=== PATIENT | female | born 1970 | race Caucasian/White ===

== ENCOUNTER 2017-09-22 20:09 | Emergency (ER) | payer BC, OTHER ==
[2017-09-22 20:17] VITALS: BMI 41.6
[2017-09-22] MEDS ORDERED: TORADOL 30 MG VIAL IVP STA (20:54)
[2017-09-22] MEDS ORDERED: ZOFRAN INJ 4 MG VIAL IVP ONE (20:54)
[2017-09-22] MEDS ORDERED: CATAPRES TAB 0.2 MG PO ONE (20:55)
[2017-09-22] MEDS ORDERED: TORADOL 30 MG VIAL ONE (20:58)
[2017-09-22] MEDS ORDERED: NS 1000 ML 1,000 ML ONE (20:58)
[2017-09-22] MEDS ORDERED: CATAPRES TAB 0.2 MG ONE (20:58)
[2017-09-22] MEDS ORDERED: ZOFRAN INJ 4 MG VIAL ONE (20:58)
[2017-09-22] MEDS ORDERED: NS 1000 ML 1,000 ML IV SCH (21:00)
--- NOTE | 2017-09-22 21:00 | DR.GENAD ---
HPI - PCP Primary Care Physician: JUAN JOSE - Complaint/Symptoms Chief Complaint Doctors Comments: Patient is complaining of RUQ pain like someone is inside squeezing her insides with the pain worst today with nausea and vomiting. States she has been having problems with right sided pain for about 2-3 weeks with the pain off and on but it got wors today. states the pain is 10 of 10 presently with fever but denies chill or diarrhea. States she had a hysterectomy about 15 years ago and denies a history of kidney stones. states she is a patient of Dr. Osiel Alicia in [place] and she is currently taking Lisinopril 40mg; Effexor 37.5mg; and Catapres 0.1mg prn. She denies tobacco or alcohol use. Patient states she is a diabetic and takes 60 units of Lantus at night but she has not had her night dose of insulin today. Chief Complaint:: PT C/O RUQ PAIN THAT IS STABBING IN PAIN THAT IS COMMING AND GOING TO STATES SHE HAS BEEN VOMITTING ALL DAY AND HAS NOT BEEN ABLE TO KEEP ANYTHING DOWN. - Nurses notes reviewed Nurses Notes Review: Yes - Source History Provided: Patient - Mode of Arrival Mode of Arrival: Ambulatory - Timing Onset of Chief Complaint: 09/22/17 Came on: Gradually - Duration Duration: Intermittent How lon Duration: Weeks - Location Location: RUQ pain - Severity Severity: Moderate - Modifying Factors Worsens:: nothing Improves:: nothing PMH - PMH Past Medical History: Yes Past Medical History: Anxiety, Hypertension Past Surgical History: Yes Surgical History: Hysterectomy Past Surgical History Comment: BREAST REDUCTION - Family History History of Family Medical Conditions: No - Social History Does any household member use tobacco: No Alcohol Use: None Do you use any recreational Drugs:: No Lives With: Family Lives Where: Home - infectious screening In the last 2 months have you had wt loss of >10#?: NO Have you had fever, night sweats or hemotysis?: No Have you traveled outside the country in the last 6 months?: No Isolation: Standard ROS - Review of Systems Constitutional: No Symptoms Reported, Fever. negative: See HPI, Chills, Diaphoresis, Malaise, Weakness, Irritable, Fatigue, Loss of Appetite, Other Eyes: No Symptoms Reported ENTM: No Symptoms Reported Respiratoy: No Symptoms Reported. negative: See HPI, Productive Cough, Non- Productive Cough, Moist Cough, Dry Cough, Hacking Cough, Barking Cough, Brassy Cough, Orthopnea, Short of Breath, Stridor, Wheezing, Hemoptysis, Other Cardiovascular: No Symptoms Reported. negative: See HPI, Chest Pain, Edema, Palpitations, Syncope, Cyanosis, Skin Mottling, Other Gastrointestinal/Abdominal: No Symptoms Reported, Abdominal Pain, Nausea, Vomiting Genitourinary: No Symptoms Reported. negative: See HPI, Discharge, Dysuria, Frequency, Hematuria, Pain, Bleeding, Other Neurological: No Symptoms Reported, Anxiety, Emotional Problems Musculoskeletal: No Symptoms Reported Integumentary: No Symptoms Reported. negative: See HPI, Change in Color, Change in Hair/Nails, Dryness, Lesions, Lumps, Rash, Itching, Wound, Bruises, Juandice, Other Hematologic/Lymphatic: No Symptoms Reported. negative: See HPI, Anemia, Blood Clots, Easy Bleeding, Easy Bruising, Swollen Glands, Lymphadenopathy, Other Endocrine: No Symptoms Reported Psychiatric: No Symptoms Reported. negative: See HPI, Anxiety, Depression, Hallucinations, Excessive crying, Suicidal, Other PE - Vital Signs Vitals: Temperature 99.0 F Pulse Rate 109 Respiratory Rate 20 Blood Pressure [Right Radial 213/114 Artery] Blood Pressure 230/112 O2 Sat by Pulse Oximetry 97 - General Limitations: No Limitations General Appearance: Alert, In Distress (mild), Obese - Head Head Exam: Normal Inspection, Atraumatic, Normocephalic - Eyes Eye exam: Normal Appearance, PERRL, EOMI. negative: Scleral Icterus, Conjunctival Injection, Nystagmus, Miosis, Mydrasis, Periorbital Swelling, Periorbital Tenderness, Other - ENT ENT Exam: Normal Exam, Normal Oropharynx, Normal External Ear Exam, Mucous Membranes Moist, TM's Normal Bilaterally External Ear Exam: Normal External Inspection TM/Canal Exam: Bilateral Normal Nose Exam: Normal Nose Exam Mouth Exam: Normal Inspection Throat Exam: Normal Inspection, Tonsillar Erythema. negative: Tonsillomegaly, Tonsillar Exudate, R Peritonsillar Mass, L Peritonsillar Mass, Muffled Voice, Other - Neck Neck Exam: Normal Inspection, Full ROM, Trachea Midline. negative: Tenderness, Meningismus, Lymphadenopathy, Thyromegaly, Other - Chest Chest Inspection: Normal Inspection, Symmetric Chest Wall Rise. negative: Tenderness, Rash, Abscess, Other - Respiratory Respiratory Exam: Normal Lung Sounds Bilat. negative: Accessory Muscle Use, Chest Wall Tenderness, Prolonged Expiratory Phase, Respiratory Distress, Stridor , Other Respiratory Exam: Bilateral Clear to Auscultation - Cardiovascular Cardiovascular Exam: Regular Rate, Normal Rhythm, Normal Heart Sounds - Abdominal Exam Abdominal Exam: Normal Inspection, Normal Bowel Sounds, Soft, Tenderness (RUQ tenderness; right CVA tenderness with guarding), Guarding, Dimnished Bowel Sounds Abdominal Tenderness: RUQ, Moderate - Extremities Extremities Exam: Normal Inspection, Full ROM, Normal Capillary Refill, Edema, Joint Swelling - Back Back Exam: Normal Inspection, Full ROM, (R) CVA Tenderness - Neurologic Neurological Exam: Alert, Oriented X3, CN II-XII Intact, Normal Gait, Reflexes Normal - Psychiatric Psychiatric Exam: Normal Affect, Normal Mood - Skin Skin Exam: Warm, Dry, Intact, Normal Color. negative: Rash, Cyanosis, Diaphoresis, Erythema, Pallor, Mottled, Other ROR - Labs Reviewed Laboratory Results Reviewed?: Yes (All labs and x-ray results reviewed and discussed with patient) Result Diagrams: 09/22/17 21:04 09/22/17 21:04 Laboratory: WBC 11.1 X10^3/uL (3.6-10.0) H 09/22/17 21:04 RBC 4.93 X10^6/uL (3.5-5.4) 09/22/17 21:04 Hgb 14.0 g/dL (12.0-16.0) 09/22/17 21:04 Hct 42.0 % (36.0-47.0) 09/22/17 21:04 MCV 85.0 fL (80.0-100.0) 09/22/17 21:04 MCH 28.4 pg (27.0-34.0) 09/22/17 21:04 MCHC 33.4 g/dL (33.0-35.0) 09/22/17 21:04 RDW 13.0 % (11.6-16.5) 09/22/17 21:04 Plt Count 224 X10^3/uL (150.0-450.0) 09/22/17 21:04 MPV 11.1 fL (7.4-11.0) H 09/22/17 21:04 Neut % 52.1 % (42.0-75.0) 09/22/17 21:04 Lymph % 37.3 % (21.0-51.0) 09/22/17 21:04 [place] % 4.9 % (0.0-13.0) 09/22/17 21:04 Eos % 3.7 % (0.9-2.9) H 09/22/17 21:04 Baso % 2.0 % (0.2-1.0) H 09/22/17 21:04 Neut # 5.8 x10^3/uL (2.2-4.8) H 09/22/17 21:04 Lymph # 4.1 X10^3/uL (1.3-2.9) H 09/22/17 21:04 [place] # 0.5 x10^3/uL (0.3-0.8) 09/22/17 21:04 Eos # 0.4 x10^3/uL (0.0-0.2) H 09/22/17 21:04 Baso # 0.2 X10^3/uL (0.0-0.1) H 09/22/17 21:04 Absolute Nucleated RBC 0.1 /100WBC 09/22/17 21:04 Sodium 138 mmol/L (136-145) 09/22/17 21:04 Corrected Sodium 145 mmol/L (136-145) 09/22/17 21:04 Potassium 4.1 mmol/L (3.5-5.1) 09/22/17 21:04 Chloride 102 mmol/L (98-107) 09/22/17 21:04 Carbon Dioxide 27.1 mmol/L (21-32) 09/22/17 21:04 BUN 23 mg/dL (7-18) H 09/22/17 21:04 Creatinine 1.41 mg/dL (0.55-1.02) H 09/22/17 21:04 Est GFR (MDRD) Af Amer 51 (>60) L 09/22/17 21:04 Est GFR (MDRD) Non-Af 42 (>60) L 09/22/17 21:04 Glucose 407 mg/dL (65-99) H 09/22/17 21:04 Calcium 8.8 mg/dL (8.5-10.1) 09/22/17 21:04 Corrected Calcium 9.4 mg/dL (8.5-10.1) 09/22/17 21:04 Total Bilirubin 0.40 mg/dL (0.2-1.0) 09/22/17 21:04 AST 19 Units/L (15-37) 09/22/17 21:04 ALT 49 Units/L (12-78) 09/22/17 21:04 Alkaline Phosphatase 144 Units/L (46-116) H 09/22/17 21:04 Total Protein 7.6 g/dL (6.4-8.2) 09/22/17 21:04 Albumin 3.3 g/dL (3.4-5.0) L 09/22/17 21:04 Globulin 4.3 g/dL (2.5-4.5) 09/22/17 21:04 Albumin/Globulin Ratio 0.8 Ratio (1.1-2.1) L 09/22/17 21:04 Amylase 31 Units/L (25-115) 09/22/17 21:04 Lipase 335 Units/L (73-393) 09/22/17 21:04 Specimen Type Clean catch urine 09/22/17 20:52 Urine Color Yellow (YELLOW) 09/22/17 20:52 Urine Appearance Clear (CLEAR) 09/22/17 20:52 Urine pH 6.0 (5.0 - 8.0) 09/22/17 20:52 Ur Specific [place] 1.015 (1.000-1.030) 09/22/17 20:52 Urine Protein 2+ (NEGATIVE) 09/22/17 20:52 Urine Glucose (UA) 4+ (NEGATIVE) 09/22/17 20:52 Urine Ketones Negative (NEGATIVE) 09/22/17 20:52 Urine Occult Blood 1+ (NEGATIVE) 09/22/17 20:52 Urine Nitrite Negative (NEGATIVE) 09/22/17 20:52 Urine Bilirubin Negative (NEGATIVE) 09/22/17 20:52 Urine Urobilinogen Normal (NORMAL) 09/22/17 20:52 Ur Leukocyte Esterase 1+ (NEGATIVE) 09/22/17 20:52 Urine RBC 0-3 /HPF (NONE SEEN) 09/22/17 20:52 Urine WBC 0-3 /HPF (NONE SEEN) 09/22/17 20:52 Ur Squamous Epith Cells Moderate /HPF (NEGATIVE) 09/22/17 20:52 Urine Bacteria Trace /HPF (NEGATIVE) 09/22/17 20:52 Ur Culture Indicated? No/not indicated 09/22/17 20:52 - XRAY XRAY Interpreted by: Radiologist (CT abdomen and pelvis: Cholelithiasis without CT evidence of acute cholecystitis. Mild hepatomegaly and heapatic steatosis.) - Diagnosis Discharge Problem: Essential hypertension Cholelithiasis Qualifiers: Cholecystitis presence: without cholecystitis Abdominal pain Qualifiers: Abdominal location: right upper quadrant Qualified Code(s): R10.11 - Right upper quadrant pain Diabetes mellitus Qualifiers: Diabetes mellitus type: type 1 Diabetes mellitus complication status: with hyperglycemia Qualified Code(s): E10.65 - Type 1 diabetes mellitus with hyperglycemia Chronic kidney disease Qualifiers: Chronic kidney disease stage: stage 3 (moderate) Qualified Code(s): N18.3 - Chronic kidney disease, stage 3 (moderate) - Discharge Plan Disposition: HOME, SELF-CARE Condition: Stable Prescriptions: Ondansetron [Zofran Odt] 4 mg PO Q8H PRN #14 tab.rapdis PRN Reason: - Follow ups/Referrals Follow ups/Referrals: SHREYAS ALICIA [Primary Care Provider] - 3 days - Instructions Instructions: Cholelithiasis, Type 2 Diabetes Mellitus, Adult, [id number], Chronic Kidney Disease, [id number], Hypertension, [id number] Additional Instructions: Patient informed of CT and lab results and she said she wanted to go home and try home therapy and see Dr. Alicia on Monday in the office for evaluation and referral to surgeon. states if she gets worst she will return to the emergency room. States she do not want to be admitted into the hospital presently.
[2017-09-22 21:15] LABS: BILIRUBIN,URINE NEGATIVE (NEGATIVE); BLOOD/HEMOGLOBIN,URINE 1+ (NEGATIVE); GLUCOSE, URINE 4+ (NEGATIVE); KETONES,URINE NEGATIVE (NEGATIVE); LEUKOCYTE ESTERASE ,URINE 1+ (NEGATIVE); NITRITES,URINE NEGATIVE (NEGATIVE); PROTEIN,URINE 2+ (NEGATIVE); UROBILINOGEN,URINE NORMAL (NORMAL)
[2017-09-22 21:17] LABS: BASOPHILS # (AUTO) 0.2 X10^3/uL (0.0-0.1); EOSINOPHILS # (AUTO) 0.4 x10^3/uL (0.0-0.2); EOSINOPHILS % (AUTO) 3.7 % (0.9-2.9); LYMPHOCYTES # (AUTO) 4.1 X10^3/uL (1.3-2.9); LYMPHOCYTES % (AUTO) 37.3 % (21.0-51.0); MEAN CORPUSCULAR HEMOGLOBIN 28.4 pg (27.0-34.0); MEAN CORPUSCULAR HGB CONC 33.4 g/dL (33.0-35.0); MEAN PLATELET VOLUME 11.1 fL (7.4-11.0); MONOCYTES # (AUTO) 0.5 x10^3/uL (0.3-0.8); MONOCYTES % (AUTO) 4.9 % (0.0-13.0); NEUTROPHILS # (AUTO) 5.8 x10^3/uL (2.2-4.8); NEUTROPHILS % (AUTO) 52.1 % (42.0-75.0); PLATELET COUNT 224 X10^3/uL (150.0-450.0); RED BLOOD COUNT 4.93 X10^6/uL (3.5-5.4); WHITE BLOOD COUNT 11.1 X10^3/uL (3.6-10.0)
[2017-09-22 21:27] LABS: APPEARANCE,URINE CLEAR (CLEAR); BACTERIA,URINE TRACE /HPF (NEGATIVE); COLOR,URINE YELLOW (YELLOW); RBC,URINE 0-3 /HPF (NONE SEEN); SQUAMOUS EPITHELIAL CELL,UR MODERATE /HPF (NEGATIVE)
[2017-09-22 21:30] LABS: ALBUMIN 3.3 g/dL (3.4-5.0); CALCIUM 8.8 mg/dL (8.5-10.1); CARBON DIOXIDE 27.1 mmol/L (21-32); COR CA(FOR HYPOALB) 9.4 mg/dL (8.5-10.1); CREATININE 1.41 mg/dL (0.55-1.02); TOTAL PROTEIN 7.6 g/dL (6.4-8.2)
--- NOTE | 2017-09-22 21:31 | CT ---
CT abdomen without contrast Indication: Fever, right upper quadrant pain Technique: Helical CT images of the abdomen and pelvis were obtained without IV contrast. Reformatted images in the coronal and sagittal planes were also generated for review. Comparison: None Findings: Lung bases are clear. No aggressive osseous lesions are identified. Within the limits of a noncontrast exam, the liver is mildly enlarged and diffusely steatotic but nor mal in configuration without focal lesion. There is cholelithiasis without CT evidence of acute maida cystitis. The spleen, pancreas and adrenals are unremarkable. Both kidneys and visualized ureters are normal without radiopaque stones or hydroureteronephrosis. There is no bowel inflammation or obstruc tion. The appendix is normal. The IVC, abdominal aorta and urinary bladder are normal. The patient is post hysterectomy. No free air, free fluid or lymphadenopathy is identified. Impression: No acute abnormality to explain patient's symptoms. Cholelithiasis without CT evidence of acute cholecystitis. Mild hepatomegaly and hepatic steatosis Reported By:
[2017-09-22 22:10] VITALS: BP 213/114
[2017-09-22] MEDS ORDERED: HumuLIN R IV STA (22:19)
[2017-09-22] MEDS ORDERED: HumuLIN R ONE (22:47)
[2017-09-23] MEDS ORDERED: SNACK - Diabetic Appropriate PO SCH (20:00)
== END 2017-09-22 23:21 | disposition home or self-care (01) ==
LOC: ER 20:21
DX: K80.20 Calculus of gallbladder without cholecystitis without obstruction (principal); R10.11 Right upper quadrant pain; E10.65 Type 1 diabetes mellitus with hyperglycemia; N18.3 Chronic kidney disease, stage 3 (moderate); I10 Essential (primary) hypertension
CPT/HCPCS: 36415; 74176; 80053; 81001; 82150; 83690; 85025; 96365; 96367; 96374; 96375; 99282; 99283; A4216; J1815; J1885; J2405

== ENCOUNTER 2017-10-11 07:28 | Day surgery (SDC) | payer BC, OTHER ==
[~2017-10-11 07:28] MED LIST: MARCAINE 0.25% INJ ONE; XYLOCAINE 1% and EPINEPHRINE 1:100,000 ONE
[2017-10-11] MEDS ORDERED: NS 1000 ML 1,000 ML ONE (08:23)
[2017-10-11 08:25] LABS: BASOPHILS # (AUTO) 0.1 X10^3/uL (0.0-0.1); BASOPHILS % (AUTO) 1.1 % (0.2-1.0); EOSINOPHILS # (AUTO) 0.5 x10^3/uL (0.0-0.2); EOSINOPHILS % (AUTO) 4.9 % (0.9-2.9); HEMATOCRIT 42.2 % (36.0-47.0); HEMOGLOBIN 14.3 g/dL (12.0-16.0); LYMPHOCYTES % (AUTO) 31.7 % (21.0-51.0); MEAN CORPUSCULAR HEMOGLOBIN 28.8 pg (27.0-34.0); MEAN CORPUSCULAR VOLUME 84.7 fL (80.0-100.0); MEAN PLATELET VOLUME 10.8 fL (7.4-11.0); MONOCYTES # (AUTO) 0.5 x10^3/uL (0.3-0.8); MONOCYTES % (AUTO) 5.2 % (0.0-13.0); NEUTROPHILS # (AUTO) 5.3 x10^3/uL (2.2-4.8); NEUTROPHILS % (AUTO) 57.1 % (42.0-75.0); PLATELET COUNT 207 X10^3/uL (150.0-450.0); RED BLOOD COUNT 4.98 X10^6/uL (3.5-5.4); RED CELL DISTRIBUTION WIDTH 12.6 % (11.6-16.5); WHITE BLOOD COUNT 9.3 X10^3/uL (3.6-10.0)
[2017-10-11 08:37] LABS: ALANINE AMINOTRANSFERASE 55 Units/L (12-78); ALBUMIN 3.2 g/dL (3.4-5.0); ALKALINE PHOSPHATASE 142 Units/L (46-116); ASPARTATE AMINO TRANSFERASE 26 Units/L (15-37); BLOOD UREA NITROGEN 18 mg/dL (7-18); CALCIUM 8.5 mg/dL (8.5-10.1); CARBON DIOXIDE 22.9 mmol/L (21-32); CHLORIDE 101 mmol/L (98-107); COR CA(FOR HYPOALB) 9.1 mg/dL (8.5-10.1); COR NA(FOR HYPERGLY) 143 mmol/L (136-145); CREATININE 1.15 mg/dL (0.55-1.02); SODIUM 137 mmol/L (136-145); TOTAL PROTEIN 7.6 g/dL (6.4-8.2); eGFR BLACK RACES > 60 (>60); eGFR NON BLACK RACES 54 (>60)
[2017-10-11 09:17] VITALS: BP 200/113
== END 2017-10-11 09:00 | disposition home or self-care (01) ==
LOC: SURG1 07:28
PROVIDERS: ATTEND Student in an Organized Health Care Education/Training Program
DX: I10 Essential (primary) hypertension (principal); R73.9 Hyperglycemia, unspecified; R94.31 Abnormal electrocardiogram [ECG] [EKG]; Z53.8 Procedure and treatment not carried out for other reasons
CPT/HCPCS: 36415; 80053; 85025; 93005; 93010; S0020; J2001

== ENCOUNTER → 2017-11-02 | Outpatient (CLI) | payer BC, OTHER ==
[2017-10-11 09:17] VITALS: BP 200/113
--- NOTE | 2017-11-02 09:58 | US ---
History: Uncontrolled hypertension Study: Ultrasound of kidneys Findings: Real-time images of the kidneys in the sagittal and transverse plane were obtained. The right kidney measured 8.3 x 5.8 x 11.4 cm. No hydronephrosis mass or perinephric reaction is seen . There is increased echogenicity within the liver relative to the right renal cortex compatible with hepatic steatosis.. The left kidney measures 5.8 x 5.6 x 10.6 cm. No hydronephrosis or mass is evident. The urinary bladder showed no obvious wall thickening or mass. Impression: 1. Normal size kidneys without hydronephrosis or mass. 2. No focal defect of the urinary bladder is seen. The Reported By:
== END ==
LOC: RAD 08:45
PROVIDERS: ATTEND Nurse Practitioner Family
DX: I10 Essential (primary) hypertension (principal); F41.1 Generalized anxiety disorder; E11.9 Type 2 diabetes mellitus without complications
CPT/HCPCS: 76770

== ENCOUNTER → 2017-12-04 | Outpatient (CLI) | payer BC, OTHER ==
[~2017-12-04] MED LIST changes: +LEXISCAN IV ONE; -MARCAINE 0.25% INJ ONE; -XYLOCAINE 1% and EPINEPHRINE 1:100,000 ONE
== END ==
LOC: RAD 13:24
PROVIDERS: ATTEND Internal Medicine Cardiovascular Disease
DX: R94.31 Abnormal electrocardiogram [ECG] [EKG] (principal)
CPT/HCPCS: 78452; 93017; A4222; A9502; J2785